=== PATIENT | female | born 2000 | race Two or more races ===

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

== ENCOUNTER 2018-10-08 22:44 | Emergency (ER) | payer OTHER, MEDICAID ==
[~2018-10-08] VITALS: Ht 160 cm; Wt 77.3 kg
[2018-10-08 22:52] VITALS: BP 126/83
--- NOTE | 2018-10-08 23:18 | NUR ---
TO ROOM [id number]
[2018-10-08] MEDS ORDERED: KETOROLAC 30 MG/1 ML ONE (23:40)
[2018-10-09] MEDS ORDERED: KETOROLAC 30 MG/1 ML IM ONE
== END 2018-10-09 00:08 | disposition home or self-care (01) ==
LOC: ED 23:40
DX: S46.011A Strain of muscle(s) and tendon(s) of the rotator cuff of right shoulder, initial encounter (principal); X58.XXXA Exposure to other specified factors, initial encounter; Y93.89 Activity, other specified; Y92.89 Other specified places as the place of occurrence of the external cause; Y99.8 Other external cause status
CPT/HCPCS: 73030; 96372; 99283; J1885

== ENCOUNTER 2020-03-26 00:07 | Emergency (ER) | payer OTHER, MEDICAID ==
[~2020-03-26] VITALS: Ht 162.6 cm; Wt 90.8 kg
[2020-03-26 00:09] VITALS: BP 131/90
[2020-03-26] MEDS ORDERED: LIDOCAINE-MPF 1%, 5ML ONE (00:26)
[2020-03-26] MEDS ORDERED: LIDOCAINE 1%-EPI 1:100K, 20ML INFIL ONE (00:30)
[2020-03-26] MEDS ORDERED: NEOSPORIN OINT. PKT 1 PACKET ONE ×2 (01:22→01:23)
== END 2020-03-26 01:33 | disposition home or self-care (01) ==
LOC: ED 00:28
DX: S01.81XA Laceration without foreign body of other part of head, initial encounter (principal); Y04.0XXA Assault by unarmed brawl or fight, initial encounter; Y93.89 Activity, other specified; Y92.098 Other place in other non-institutional residence as the place of occurrence of the external cause; Y99.8 Other external cause status
CPT/HCPCS: 12051; 99284

== ENCOUNTER 2020-04-01 15:29 | Emergency (ER) | payer OTHER, MEDICAID ==
[2020-04-01 15:52] VITALS: BP 133/74
--- NOTE | 2020-04-01 16:03 | NUR ---
Patient given discharge instructions and they have confirmed that they understand the instructions. Patient ambulatory with steady gait.
== END 2020-04-01 16:13 | disposition home or self-care (01) ==
LOC: ED 16:02
DX: S01.81XD Laceration without foreign body of other part of head, subsequent encounter (principal); Z48.02 Encounter for removal of sutures; X58.XXXD Exposure to other specified factors, subsequent encounter
CPT/HCPCS: 99281

== ENCOUNTER 2020-12-21 16:34 | Emergency (ER) | payer MEDICAID, OTHER ==
[~2020-12-21] VITALS: Ht 160 cm; Wt 87.2 kg
[2020-12-21 16:39] VITALS: BP 129/87
--- NOTE | 2020-12-21 17:02 | NUR ---
Patient given discharge instructions and they have confirmed that they understand the instructions. Patient ambulatory with steady gait.
== END 2020-12-21 17:08 | disposition home or self-care (01) ==
LOC: ED 16:50
DX: U07.1 COVID-19 (principal); B34.9 Viral infection, unspecified
CPT/HCPCS: 99283; U0003; U0005